=== PATIENT | male | born 2000 | race Caucasian/White ===

== ENCOUNTER 2024-05-29 03:01 | Emergency (ER) | payer OTHER ==
[~2024-05-29] VITALS: Ht 165.1 cm; Wt 62.1 kg
[2024-05-29] MEDS ORDERED: KETOROLAC TROMETHAMINE 60 MG/2 ML VIAL IM ONE (03:15)
[2024-05-29] MEDS ORDERED: ONDANSETRON 4 MG TAB ODT SL ONE (03:15)
[2024-05-29 03:42] LABS: CORONAVIRUS COVID-19 AG NEGATIVE (NEGATIVE); INFLUENZA A AG NEGATIVE (NEGATIVE); INFLUENZA B AG NEGATIVE (NEGATIVE)
[2024-05-29] MEDS ORDERED: CYCLOBENZAPRINE HCL 10 MG HOME.PACK PO ONE (03:45)
[2024-05-29] MEDS ORDERED: ONDANSETRON 4 MG HOME.PACK SL ONE (03:45)
[2024-05-29] MEDS ORDERED: ONDANSETRON ODT8 MG PO (03:46)
[2024-05-29] MEDS ORDERED: CYCLOBENZAPRINE10 MG PO (03:46)
[2024-05-29 04:01] VITALS: BP 128/76
== END 2024-05-29 04:00 | disposition home or self-care (01) ==
LOC: ED 03:01
PROVIDERS: Family Medicine
DX: B34.9 Viral infection, unspecified (principal); M41.9 Scoliosis, unspecified
CPT/HCPCS: 36415; 96372; 99284; A9270; J1885